=== PATIENT | female | born 1990 | race Caucasian/White ===

== ENCOUNTER 2019-05-25 05:34 | Emergency (ER) | payer OTHER ==
[~2019-05-25] VITALS: Ht 170.2 cm; Wt 107.5 kg
[2019-05-25 05:40] VITALS: BP 136/84
[2019-05-25] MEDS ORDERED: FLUO40CA9 PO (05:53)
[2019-05-25] MEDS ORDERED: ZOLP5TAB PO (05:55)
[2019-05-25] MEDS ORDERED: IBUPROFEN 600 MG TABLET ONE (05:58)
[2019-05-25] MEDS ORDERED: IBUPROFEN 600 MG TABLET PO ONE (06:00)
--- NOTE | 2019-05-25 06:00 | NUR ---
Pt in [facility] [place] noted, vitals signs monitors in place. Medicated per JUN.
[2019-05-25 06:22] LABS: RAPID INFLUENZA A Negative (Negative); RAPID INFLUENZA B Negative (Negative)
== END 2019-05-25 06:42 | disposition home or self-care (01) ==
LOC: ED 06:30
DX: B34.9 Viral infection, unspecified (principal); M79.10 Myalgia, unspecified site
CPT/HCPCS: 87400; 99283